=== PATIENT | male | born 1995 | race Caucasian/White ===

== ENCOUNTER 2017-03-06 19:35 | Observation (INO) ==
[2017-03-06] MEDS ORDERED: *HR* Morphine 2 MG/ML SYRINGE IVP ONE (19:47)
[2017-03-06] MEDS ORDERED: Ondansetron 4 MG/2 ML VIAL IVP ONE (19:47)
[2017-03-06] MEDS ORDERED: 0.9 % Sodium Chloride 1,000 ML IVC ONE (19:48)
--- NOTE | 2017-03-06 19:52 | Emergency Department Note ---
Disposition Clinical Impression: Testicular fracture Qualifiers: Encounter type: initial encounter Qualified Code(s): S31.30XA - Unspecified open wound of scrotum and testes, initial encounter Disposition: Admitted As Inpatient Condition: Fair Time of Disposition: 21:38 General Adult HPI - General Chief complaint: ED General Medical Stated complaint: Abdominal injury Time Seen by Provider: 03/06/17 19:39 Source: patient Limitations: no limitations Nursing Notes Reviewed: Yes Vital Signs Reviewed: Yes - History of Present Illness HPI Narrative: 21-year-old [facility] male presents to the ED complaining of testicular pain. He states about an hour ago he was playing softball when a ball hit him in the testicles. He was not wearing a cup at the time. He said that immediately he had 10 out of 10 pain that was radiating up into his belly. He said his belly hurts as well but it is mainly coming from the testicles and also radiating to the back. He has not taken anything for the pain at this time. He says is a sharp stabbing pain and is on tolerable. Patient states he has no medical problems to note or any other history of anything. Patient has not vomited and does not feel nauseous at this time. Pain Scale: 10 - Related Data Home Medications Medication Instructions Recorded Confirmed No Known Home Drugs 03/06/17 03/06/17 Allergies Allergy/AdvReac Type Severity Reaction Status Date / Time No Known Allergies Allergy Verified 03/06/17 19:37 Constitutional: Denies: fever, chills, weakness, weight change Eyes: Denies: eye pain, eye discharge, vision change ENT ED: Denies: ear pain, throat pain, dental pain, hearing loss, epistaxis, congestion, dysphagia Cardiovascular: Denies: chest pain, palpitations, dyspnea on exertion, edema, syncope Respiratory: Denies: cough, dyspnea, wheezes, hemoptysis, stridor Gastrointestinal: Denies: abdominal pain, nausea, vomiting, diarrhea, constipation, hematemesis, melena, hematochezia Genitourinary: Reports: testicular pain. Denies: urgency, dysuria, frequency, hematuria, testicular mass, genital lesions Musculoskeletal: Denies: back pain, neck pain, arthralgia, myalgia Integumentary: Denies: rash, abrasion, lesions Neurological: Denies: headache, weakness, numbness, paresthesias, confusion, abnormal gait, vertigo Psychiatric: Denies: anxiety, depression, suicidal thoughts, homicidal thoughts , auditory hallucinations, visual hallucinations Endocrine: Denies: fatigue Hematological/Lymphatic: Denies: easy bleeding, easy bruising Allergic/Immunologic: Denies: facial swelling, urticaria Past Medical History - Past Medical History Medical history: Reports: no medical history Psychiatric history: Reports: no psych history - Social History Smoking Status: Current every day smoker Alcohol use: Reports: occasionally Drug use: Reports: none Physical Exam - General Limitations: no limitations General appearance: alert, in no apparent distress - Head Head exam: atraumatic, normocephalic, normal inspection - Neck Neck exam: Present: normal inspection, full ROM, trachea midline - Chest Chest inspection: Present: normal inspection, symmetric chest wall rise - Respiratory Respiratory exam: Present: normal lung sounds bilaterally - Cardiovascular Cardiovascular exam: Present: regular rate, normal rhythm, normal heart sounds - Abdominal Exam Abdominal exam: Present: soft, tenderness, normal bowel sounds. Absent: distention, guarding, rebound, rigidity, trauma, Lazaro's sign, Rovsing's sign, tenderness at McBurney's Point, mass, pulsatile mass, hernia Abdominal tenderness: Present: diffuse, moderate - Rectal Exam Rectal exam: Present: tenderness - Male exam: Present: normal testicular lie (Left testicle was higher than the right.), other (Electrical Tests Supervisor was Denis Davenport). Absent: circumcised Scrotal exam: testicular tenderness: bilateral, testicular swelling: left, epididymal tenderness: left, abnormal testicular lie: left (Higher than right.) - Back Exam Back exam: Present: normal inspection, full ROM. Absent: tenderness - Skin Skin exam: Present: warm, dry, intact, normal color Course Course Narrative: Gen. male presents to the ED complaining of testicular pain after did not hit by a softball in the groin region. We are to examine the patient he was very tender on palpating the testicles on both sides. It is very hard to get a good exam on him so we will get an IV and give him pain medication will start with 2 mg of morphine because he is probably opiate naive and also Zofran for nausea prophylaxis. Patient is okay with this plan. We will also get a testicle ultrasound to be sure there is good blood flow in both testicles for no signs of testicular torsion. Vital Signs Temperature 98.5 F 08/31/17 19:35 Pulse Rate 87 03/06/17 19:35 Respiratory Rate 18 03/06/17 19:35 Blood Pressure 146/93 03/06/17 19:35 O2 Sat by Pulse Oximetry 97 03/06/17 19:35 Temperature 98.5 F 03/06/17 19:35 Pulse Rate 85 03/06/17 21:00 Respiratory Rate 16 03/06/17 21:59 Blood Pressure 138/79 03/06/17 21:59 O2 Sat by Pulse Oximetry 99 03/06/17 21:00 Oxygen Delivery Oxygen Delivery Room Air Medical Decision Making - MDM Narrative Medical decision making narrative: 21-year-old male presents the ED complaining of testicular pain after getting hit with a softball in the groin region. He states he is not wearing The time. He came in at 10 out 10 pain that was located and scrotum reading up into his belly. We examined him in the left testicle is grossly larger than the right and it was very tender to touch. Immediately we decided to place an IV give him fluids and pain medication including 2 mg of morphine as well as Zofran for nausea prophylaxis. He immediately had pain relief after getting up. We ordered a stat ultrasound Doppler of the testicle. That did show a testicular fracture. Patient stated he had not eaten since 1:00 this afternoon. At this time urology was consulted and spoke with Dr. Rosenberg he recommended that surgery to repair the fracture was the best indication and he was to come in and repair it tonight. So the patient about this and they agreed to this plan. Patient was admitted to the surgery and Dr. Roper. Patient presents plan. When patient was admitted his pain was under control vital signs were stable Scrotum Ultrasound 03/06/17 19:46 IMPRESSION: Findings consistent with fracture of the left testicle Small simple right hydrocele Increased vascularity to the left epididymis Left hematocele D/ / Josemanuel Petit MD / Josemanuel Petit MD Interpreting Provider: Josemanuel Petit MD - Medical Records Medical records reviewed: Yes I reviewed the patient's medical records. - Radiology Data Radiology results reviewed: Yes I reviewed the patient's radiology results. Attestation Statement - Attestation Attestation: I, Orlando Segura DO, examined this patient [id number] and my medical decision-making was reviewed with Dr. Perez PGY - 1, Resident Physician. I agree with the documented findings, disposition and treatment plan as described except to the extent set forth below. Please see my progress notes for details. 21-year-old male sustained blunt trauma to left testicle. Significant pain to palpation and side. No other injuries noted. No signs of bleeding swelling irritation to the scrotum or penis at this point. Patient was in significant distress on arrival pain medication fluids given. Ultrasound completed showing fracture of the left testicle this time. Consultation placed to the on-call urologist Dr. rosenberg. Disposition pending his evaluation ultrasound read. See documentation detailed review and the resident physician's note. Physical exam shows benign-appearing abdomen concern for swollen firm nodular testicle and left side after injury today no other blood or trauma noted at this point. Vital signs are stable presentation except for mild tachycardia. Patient has what appears to be testicular fracture. Consult placed to the on-call urologist. Patient will be admitted and surgical intervention performed. Patient transported to the operative suite without any complication
[2017-03-06] MEDS ORDERED: *HR* Propofol 200 MG/20 ML VIAL IVP ONE (21:23)
[2017-03-06] MEDS ORDERED: *HR* FentaNYL (PF) 100 MCG/2 ML VIAL ONE (21:23)
[2017-03-06] MEDS ORDERED: *HR* Midazolam HCl 2 MG/2 ML VIAL ONE (21:23)
[2017-03-06] MEDS ORDERED: Lidocaine -MPF 2% 2 ML VIAL ONE (21:24)
[2017-03-06] MEDS ORDERED: *HR* Succinylcholine 200 MG/10 ML VIAL IVP ONE (21:24)
[2017-03-06] MEDS ORDERED: Lidocaine 1% 20 ML MDV ONE (21:33)
--- NOTE | 2017-03-06 21:43 | Urology History & Physical ---
Date of Encounter: 03/06/17 Time of Encounter: 21:41 Assessment and Plan (1) Testicular fracture Current Visit: Yes Status: Acute I discussed with the patient and his family regarding treatment options of testicular fracture. These included observation versus surgical exploration. I a recommended to the family to have surgical exploration. They have agreed and informed consent was obtained. All risks, benefits, alternatives were discussed with the patient and family. He will also be brought in for observation for pain control overnight. Qualifiers: Encounter type: initial encounter Qualified Code(s): S31.30XA - Unspecified open wound of scrotum and testes, initial encounter History of Present Illness Chief complaint: scrotal injury HPI: Mr. Baker is a 21 year old male with history of recent softball to the scrotum. Patient came to the emergency department with severe pain. Scrotal ultrasound revealed possible left testicular rupture. Right testicle appeared intact. Past Med Surg Social Fam HX - Past Medical History Medical history: no medical history Psychiatric history: no psych history - Social History Smoking Status: Current every day smoker Alcohol use: occasionally Drug use: none Medications and Allergies 3 Allergy/AdvReac Type Severity Reaction Status Date / Time No Known Allergies Allergy Verified 03/06/17 19:37 Review of Systems - Constitutional no chills - EENT Nose, mouth and throat: no dizziness - Cardiovascular no chest pain - Respiratory no cough Exam Initial Vital Signs Temp Pulse Resp BP Pulse Ox 98.5 F 87 18 146/93 97 03/06/17 19:35 03/06/17 19:35 03/06/17 19:35 03/06/17 19:35 03/06/17 19:35 - General physical appearance Present: well developed - Respiratory Present: normal respiratory effort - Cardiovascular Cardiovascular exam IM: RRR - Abdomen Abdomen: Present: soft - Genitourinary other (difficult secondary to pain ) Urology Results - Labs All other labs normal.
--- NOTE | 2017-03-06 21:57 | Anesthesia Evaluation PreOp ---
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 HX Other Medical History: Other (hypoglycemia) Anesthesia History: No Prior Anesthetic Complications (no personal hx of anesthesia exposure; no fhx of problems with anesthesia that he is aware of) Alcohol Use: occasionally Drug use: none Medications and Allergies No Known Home Drugs 03/06/17 [History] 3 Allergy/AdvReac Type Severity Reaction Status Date / Time No Known Allergies Allergy Verified 03/06/17 19:37 - Meds/Allergy Pre-op Review Medications Reviewed: Yes Allergies Reviewed: Yes Beta Blockers on Current Med List: No Anesthesia Exam Last Vital Signs Temp 98.5 F 03/06/17 19:35 Pulse 80 03/06/17 19:47 Resp 18 03/06/17 19:47 BP 132/84 03/06/17 19:47 Pulse Ox 99 03/06/17 19:47 Weight: 64 kg NPO (# of Hours): = 2hrs for clears, = 8hrs for solid - HEENT Pupil (Motor): Pupils equal, EOMI Mallampati: II Teeth: Normal Oral Opening: Greater than 3 - MA[employer] LOC: Oriented [employer] Motor: Normal RUE, Normal LUE, Normal RLE, Normal LLE, Normal Face - Cardiac Rhythm: Regular Murmur: None - Pulmonary Breath Sounds: bilateral Clear Respiratory Effort: Symmetrical Anesthesia Assess/Plan ASA Score: 1 Modified Adrian Scale for Level of Consciousness: Cooperative, oriented, and tranquil Anesthetic Plan: General Monitoring Plan: Standard Monitors Recovery Plan: PACU
[2017-03-06] MEDS ORDERED: *HR* HYDROmorphone (PF) 1 MG/ML SYRINGE IVP PRN (21:59)
[2017-03-06] MEDS ORDERED: *HR* Promethazine 25 MG/ML VIAL IVP PRN (21:59)
[2017-03-06] MEDS ORDERED: Ondansetron 4 MG/2 ML VIAL ONE (22:11)
[2017-03-06] MEDS ORDERED: Dexamethasone 4 MG/ML VIAL ONE (22:11)
[2017-03-06] MEDS ORDERED: Ketorolac 30 MG/ML VIAL ONE (22:20)
--- NOTE | 2017-03-06 22:57 | Operative Note ---
Date of procedure: 03/06/17 Pre-op diagnosis: scrotal trauama Post-op diagnosis: other (left testicular fracture) Procedure: Scrotal exploration with left testicular fracture repair Anesthesia: ANCELMO Surgeon: Jason Samayoa Specimen: Testicular tubules Condition: stable Disposition: PACU Procedure in Detail: Patient was taken operating room. Given general anesthesia. Timeout procedure performed after the patient was prepped and draped in normal sterile fashion. I then instilled 3 mL of lidocaine in the left hemiscrotum. Incision was made carried down through dartos tissue. The testicle and tunica were delivered through the scrotal incision. I entered the tunica with immediate return of blood. Once this was removed from the field. I was able to visualize that the testicle had split roughly in half. Edematous red intratesticular tubules were easily visible. Total length of rupture was approximately 3-4 cm. I then proceeded to approximate the middle of the rupture. I did this using 4-0 Monocryl. I then debrided the edematous tubules with healthy tubules seen at the base. I then proceeded to reapproximate the remainder of the rupture of the left testicle using 4-0 Monocryl. Hemostasis was then obtained. The testicle was then delivered back to the scrotum. Dartos tissue was closed using running 3-0 Vicryl. Skin was closed using 4-0 Monocryl. Dermabond was placed over top. Patient tolerated well was taken to PACU in stable condition.
--- NOTE | 2017-03-06 23:37 | Anesthesia Evaluation Post Op ---
Date of Encounter: 03/06/17 Time of Encounter: 23:36 - Vital Signs Vital Signs: Last Vital Signs Temp 99.3 F 03/06/17 23:24 Pulse 93 03/06/17 23:24 Resp 18 03/06/17 23:24 BP 101/52 03/06/17 23:24 Pulse Ox 97 03/06/17 23:24 - Lungs Lungs: Clear Ascult./Percussion - Airway Airway: Non-obstructed - Cardiovascular Regular Rate - Mental Status Mental Status: Alert & Oriented, Answers Appropriately - Pain Pain Scale: 2 - Nausea Vomiting Nausea Vomiting: Not Present - Hydration Hydration: Ice chips - Discharge PostOp Status: Transfer Patient to floor
[2017-03-06] MEDS ORDERED: *HR* HYDROcodone/Acet 5/325 mg TABLET PO PRN (23:42)
[2017-03-06] MEDS ORDERED: *HR* Morphine 2 MG/ML SYRINGE IVP PRN (23:42)
[2017-03-06] MEDS ORDERED: Naloxone 0.4 MG/ML INJ IVP PRN (23:42)
[2017-03-06] MEDS ORDERED: 0.9 % Sodium Chloride 1,000 ML IVC SCH (23:42)
--- NOTE | 2017-03-07 06:57 | Discharge Summary ---
Date of Encounter: 03/07/17 Time of Encounter: 06:55 - Discharge Diagnosis (1) Testicular fracture Priority: Primary Status: Acute Qualifiers: Encounter type: initial encounter Qualified Code(s): S31.30XA - Unspecified open wound of scrotum and testes, initial encounter - Discharge Medications Prescriptions: HYDROcodone/Acet 5/325 mg [[place] 5-325 mg] 2 tab PO Q4H PRN #10 tab PRN Reason: pain 1-6 Home Medications: HYDROcodone/Acet 5/325 mg [[place] 5-325 mg] 2 tab PO Q4H PRN #10 tab 03/07/17 [Rx ] Allergies/Adverse Reactions: 3 Allergy/AdvReac Type Severity Reaction Status Date / Time No Known Allergies Allergy Verified 03/06/17 19:37 Procedures and tests throughout hospitalization: left testicular rupture repair Date of admission: 03/06/17 21:29 Primary care physician: PCP NONE Consults: 03/07/17 06:49 Consult to Computer Equipment Repairer [CONS] Routine Reason for SW Consult: Financial concerns Discharging clinician: Jason Samayoa Anticipated date of discharge: 03/07/17 - Patient Status Disposition: Home, Self-Care Condition: Good Overall status at discharge: patient is progressing back to baseline - Discharge Instructions Follow Up With: NONE,PCP [Primary Care Provider] - Jason Samayoa MD [Partnered Physician] - (2-3 weeks ) Additional Instructions: no heavy lifting more than 10lbs for 2 weeks. ok to shower tonight. scrotal elevation at all times. call or return to care if fever greater than 101.5 . - Diet and Activity Activity: increase activity as tolerated Diet: advance to your usual diet - Hospital Course Hospital course: Mr. Baker is a 21 year old male sp testicular trauma with subsequent repair. did well overnight with no pain medicine requirements. Time spent discussing smoking cessation with patient: 3 to 10 minutes - Time Spent with Patient Total time spent providing and/or coordinating discharge services: Less than 30 minutes Exam Initial Vital Signs Temp Pulse Resp BP Pulse Ox 98.5 F 87 18 146/93 97 03/06/17 19:35 03/06/17 19:35 03/06/17 19:35 03/06/17 19:35 03/06/17 19:35 - General physical appearance Present: well developed - Cardiovascular Cardiovascular exam IM: RRR - Abdomen Abdomen: Present: soft - Genitourinary other (tender and slightly swollen left testicle. incision c/d/i)
[2017-03-07 07:42] VITALS: BP 104/61
== END 2017-03-07 10:15 | disposition home or self-care (01) ==
LOC: 3BNU 19:35 → EMEROO 19:35 → 3BNU 21:56
PROVIDERS: ADMIT Urology; ATTEND Urology